=== PATIENT | female | born 1985 ===

== ENCOUNTER 2022-07-14 21:21 | Emergency (ER) | payer SELFPAY ==
[2022-07-14 21:23] VITALS: BP 158/94; PULSE 80; RESP 16; TEMP 36.4; O2SAT 99; BMI 43.9
== END 2022-07-14 23:16 | disposition left against medical advice (07) ==
LOC: ED 23:29
PROVIDERS: PCP Internal Medicine
DX: Z53.21 Procedure and treatment not carried out due to patient leaving prior to being seen by health care provider (principal)